=== PATIENT | female | born 1995 | race Caucasian/White ===

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

== ENCOUNTER 2017-04-03 18:15 | Inpatient (IN) | payer OTHER ==
--- NOTE | 2017-04-03 18:32 | EDPHY ---
H & P Stated Complaint: SI--self harm--mild lacerations bilat arms - Personal History LMP (Females 10-55): Unknown Current Tetanus/Diphtheria Vaccine: Unsure Current Tetanus Diphtheria and Acellular Pertussis (TDAP): Unsure - Medical/Surgical History Hx Asthma: No Hx Chronic Respiratory Disease: No Hx Diabetes: No Hx Cardiac Disease: No Hx Renal Disease: No Hx Cirrhosis: No Hx Alcoholism: No Hx HIV/AIDS: No Hx Splenectomy or Spleen Trauma: No Other PMH: SI Hx. - Social History Smoking Status: Never smoked Time Seen by Provider: 04/03/17 18:22 HPI/ROS: CHIEF COMPLAINT: "I cut myself " HISTORY OF PRESENT ILLNESS: 21-year-old female prior history of depression, has been intermittently compliant with her depression medications, in the ER voluntarily via private vehicle with a friend complaining of new onset self- inflicted bilateral volar wrist laceration. States that she was "practicing to kill myself". Describes increasing depression related to school and personal issues. Denies intentional ingestion. He has prior history of hospitalization for depression and suicidality. She otherwise has no complaints of pain or discomfort. REVIEW OF SYSTEMS: A ten point review of systems was performed and is negative with the exception of the items mentioned in the HPI PAST MEDICAL & SURGICAL HISTORY: Depression SOCIAL HISTORY: Student PHYSICAL EXAM (Prior to examination, patient consented to physical exam, hands were washed and my usual and customary physical exam procedures followed) 1) GENERAL: Well-developed, well-nourished, alert and oriented. She is crying, appear sad . 2) HEAD: Normocephalic, atraumatic 3) HEENT: Pupils equal, round, reactive to light bilaterally. Sclera anicteric. 4) NECK: Full range of motion, no meningeal signs. 5) LUNGS: Clear auscultation bilaterally, no wheezes, no rhonchi, no retractions. 6) HEART: Regular rate and rhythm, no murmur, no heave, no gallop. 7) ABDOMEN: No guarding, no rebound, no focal tenderness, 8) MUSCULOSKELETAL: Bilateral volar forearm multiple superficial laceration abrasion none requiring closure. She is neurovascular intact distally bilaterally. 9) BACK: no visual or palpable abnormality. 10) SKIN: No rash, no petechiae. 11) Psychiatric: Patient is oriented X 3, there is no agitation. DIFFERENTIAL DIAGNOSIS: in no particular include but limited to suicidal ideation, homicidal ideation, depression (Adolfo Gunter [place]) Constitutional: Initial Vital Signs Temperature (C) 37.0 C 04/03/17 18:18 Heart Rate 99 04/03/17 18:18 Respiratory Rate 18 04/03/17 18:18 Blood Pressure 151/69 H 04/03/17 18:18 O2 Sat (%) 99 04/03/17 18:18 O2 Delivery Mode Room Air Allergies/Adverse Reactions: No Known Allergies Allergy (Unverified 09/19/16 14:31) Home Medications: Medication Instructions Recorded Buspar (*) 09/19/16 Lexapro 09/19/16 Medical Decision Making ED Course/Re-evaluation: 6:30 p.m.: In consultation with secondary supervising physician Dr. Donato Flood, this patient has been placed on M1 hold as she endorses active suicidal ideation with plan to lacerated her wrists. Care of patient under supervision of secondary supervising physician Dr Flood . (Adolfo Gunter [place]) Other Provider: 0020 care assumed by me from MERLIN Gunter pending mental health evaluation. 0040 patient has been seen by mental health. She will be admitted to [address] Raza fletcher. I have completed the EMTALA. ( Andrew Skelton) - Data Points Laboratory Results: Laboratory Results 04/03/17 18:55 04/03/17 18:55 04/03/17 04/03/17 04/03/17 19:54 18:55 18:55 WBC RBC Hgb Hct MCV MCH MCHC RDW Plt Count MPV Neut % (Auto) Lymph % (Auto) Luce % (Auto) Eos % (Auto) Baso % (Auto) Nucleat RBC Rel Count Absolute Neuts (auto) Absolute Lymphs (auto) Absolute Monos (auto) Absolute Eos (auto) Absolute Basos (auto) Absolute Nucleated RBC Immature Gran % Immature Gran # Sodium 138 mEq/L mEq/L (134-144) Potassium 4.0 mEq/L mEq/L (3.5-5.2) Chloride 105 mEq/L mEq/L (97-110) Carbon Dioxide 20 mEq/l L mEq/l (22-31) Anion Gap 13 mEq/L mEq/L (8-16) BUN 9 mg/dL mg/dL (7-23) Creatinine 0.7 mg/dL mg/dL (0.6-1.0) Estimated GFR > 60 Glucose 88 mg/dL mg/dL (70-100) Calcium 10.1 mg/dL mg/dL (8.5-10.4) Beta HCG, Qual NEGATIVE Salicylates < 1.0 mg/dL L mg/dL (2.0-20.0) Urine Opiates Screen NEGATIVE (NEGATIVE) Acetaminophen < 10 mcg/mL L mcg/mL (10-30) Urine Barbiturates NEGATIVE (NEGATIVE) Ur Phencyclidine Scrn NEGATIVE (NEGATIVE) Ur Amphetamine Screen NEGATIVE (NEGATIVE) U Benzodiazepines Scrn NEGATIVE (NEGATIVE) Urine Cocaine Screen NEGATIVE (NEGATIVE) U Marijuana (THC) Screen NEGATIVE (NEGATIVE) Ethyl Alcohol < 10 mg/dL mg/dL (0-10) 04/03/17 18:55 WBC 7.42 10^3/uL 10^3/uL (3.80-9.50) RBC 4.77 10^6/uL 10^6/uL (4.18-5.33) Hgb 13.4 g/dL g/dL (12.6-16.3) Hct 40.3 % % (38.0-47.0) MCV 84.5 fL fL (81.5-99.8) MCH 28.1 pg pg (27.9-34.1) MCHC 33.3 g/dL g/dL (32.4-36.7) RDW 12.7 % % (11.5-15.2) Plt Count 242 10^3/uL 10^3/uL (150-400) MPV 10.1 fL fL (8.7-11.7) Neut % (Auto) 63.2 % % (39.3-74.2) Lymph % (Auto) 26.8 % % (15.0-45.0) Luce % (Auto) 7.5 % % (4.5-13.0) Eos % (Auto) 1.2 % % (0.6-7.6) Baso % (Auto) 0.9 % % (0.3-1.7) Nucleat RBC Rel Count 0.0 % % (0.0-0.2) Absolute Neuts (auto) 4.68 10^3/uL 10^3/uL (1.70-6.50) Absolute Lymphs (auto) 1.99 10^3/uL 10^3/uL (1.00-3.00) Absolute Monos (auto) 0.56 10^3/uL 10^3/uL (0.30-0.80) Absolute Eos (auto) 0.09 10^3/uL 10^3/uL (0.03-0.40) Absolute Basos (auto) 0.07 10^3/uL 10^3/uL (0.02-0.10) Absolute Nucleated RBC 0.00 10^3/uL 10^3/uL (0-0.01) Immature Gran % 0.4 % % (0.0-1.1) Immature Gran # 0.03 10^3/uL 10^3/uL (0.00-0.10) Sodium Potassium Chloride Carbon Dioxide Anion Gap BUN Creatinine Estimated GFR Glucose Calcium Beta HCG, Qual Salicylates Urine Opiates Screen Acetaminophen Urine Barbiturates Ur Phencyclidine Scrn Ur Amphetamine Screen U Benzodiazepines Scrn Urine Cocaine Screen U Marijuana (THC) Screen Ethyl Alcohol Departure - Departure Disposition: [facility] IP Clinical Impression: Severe major depression, Suicidal ideation Condition: Fair Referrals: NONE *PRIMARY CARE P,. [Primary Care Provider] - As per Instructions
[2017-04-03 19:05] LABS: % IMMATURE GRANULYOCYTES 0.4 % (0.0-1.1); ABSOLUTE IMMATURE GRANULOCYTES 0.03 10^3/uL (0.00-0.10); ADD DIFF? NO; ADD MORPH? NO; ADD SCAN? NO; ATYPICAL LYMPHOCYTE FLAG 20 (0-99); FRAGMENT RBC FLAG 0 (0-99); HEMATOCRIT 40.3 % (38.0-47.0); HEMOGLOBIN 13.4 g/dL (12.6-16.3); LEFT SHIFT FLG 0 (0-99); LIPEMIA HEMOLYSIS FLAG 80 (0-99); MEAN CELL HEMOGLOBIN 28.1 pg (27.9-34.1); MEAN CELL HEMOGLOBIN CONCENTR. 33.3 g/dL (32.4-36.7); MEAN CELL VOLUME 84.5 fL (81.5-99.8); MEAN PLATELET VOLUME 10.1 fL (8.7-11.7); PLATELET CLUMPS FLAG 0 (0-99); PLATELET COUNT 242 10^3/uL (150-400); RED BLOOD CELL COUNT 4.77 10^6/uL (4.18-5.33); RED CELL DISTRIBUTION WIDTH 12.7 % (11.5-15.2)
[2017-04-03 19:20] LABS: ANION GAP 13 mEq/L (8-16); CALCIUM 10.1 mg/dL (8.5-10.4); CARBON DIOXIDE 20 mEq/l (22-31); CHLORIDE 105 mEq/L (97-110); CREATININE 0.7 mg/dL (0.6-1.0); ETHANOL SERUM < 10 mg/dL (0-10); GLOMERULAR FILTRATION RATE > 60; GLUCOSE 88 mg/dL (70-100); SALICYLATE < 1.0 mg/dL (2.0-20.0); SODIUM 138 mEq/L (134-144)
[2017-04-04] MEDS ORDERED: LORazepam 0.5 MG TAB PO PRN (02:20)
[2017-04-04] MEDS ORDERED: ACETAMINOPHEN 325 MG TAB PO PRN (02:20)
[2017-04-04] MEDS ORDERED: MAG HYDROX/AL HYDROX/SIMETH 30 ML UDCUP PO PRN (02:20)
[2017-04-04] MEDS ORDERED: MAGNESIUM HYDROXIDE 30 ML UDCUP PO PRN (02:20)
[2017-04-04] MEDS ORDERED: busPIRone 5 MG TAB PO SCH (15:45)
[2017-04-04] MEDS: ARIPiprazole 2 MG TAB PO SCH (16:13)
[2017-04-04] MEDS: busPIRone 5 MG TAB PO SCH ×2 (16:14→20:49)
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
--- NOTE | 2017-04-04 17:25 | BCON ---
[f rep st] BEHAVIORAL HEALTH CONSULTATION INTERNAL MEDICINE CONSULTATION DATE OF CONSULTATION: 04/04/2017 REFERRING PHYSICIAN: Salazar Stephen MD REASON FOR REFERRAL: Medical clearance for inpatient behavioral health stay. HISTORY OF PRESENT ILLNESS: This patient was brought to the emergency department voluntarily with 2 friends. She had developed suicidal ideation and had inflicted shallow lacerations on her forearms with a razor blade. She was evaluated by the mental health team and admitted for further psychiatric care. She currently is without any acute complaints other than some discomfort at the superficial lacerations. PAST MEDICAL HISTORY: Depression. PAST SURGICAL HISTORY: She has donated bone marrow, and she had an Implanon implant for control, which was removed from her right upper arm. MEDICATIONS: Prior to admission, she was taking escitalopram and buspirone. ALLERGIES: Listed to acetaminophen and hydrocodone. SOCIAL HISTORY: She lives alone. 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 She is a nonsmoker and does not use alcohol. She works at [employer]. FAMILY HISTORY: Significant for alcoholism and bipolar disorder. REVIEW OF SYSTEMS: She has some pain at the sites of the superficial lacerations. Otherwise, she denies pain. She denies cough or dyspnea, fevers, chills, nausea or vomiting, constipation or diarrhea, dysuria or urinary frequency. She reports that she has had a partially volitional weight loss of approximately 30 pounds in recent months. Otherwise, a 10-point review of systems is negative. PHYSICAL EXAM: VITAL SIGNS: Blood pressure is 134/61, heart rate is 90, respiratory rate 16, oxygen saturation 94% on room air, temperature 36.9 degrees centigrade. Her weight is recorded at 77.1 kg for a body mass index of 28.3; however, this is likely erroneous as she appears to be quite obese. GENERAL: This is a well-nourished, well-developed, obese appearing woman, appears her chronologic age, cooperative and in no acute distress. HEENT: Extraocular movements are intact. Pupils are equal, round, and reactive to light. Mucous membranes are moist. Dentition is in good condition. NECK: Supple. HEART: There is a regular rate and rhythm with no murmurs, rubs, or gallops. LUNGS: Clear to auscultation bilaterally. ABDOMEN: Soft, nontender , nondistended with normoactive bowel sounds. EXTREMITIES: There is no cyanosis, clubbing, or edema. SKIN: She has multiple superficial lacerations with minimal eschar and erythema bilaterally on her palmar wrists. NEUROLOGIC: She is alert and oriented x3. There is no focal weakness. Sensation is intact to light touch. LABORATORY STUDIES: Studies were drawn in the emergency department, revealed a CBC which was completely within normal limits. Serum chemistry showed a slightly low carbon dioxide of 20, likely of no clinical significance. Otherwise, renal function and electrolytes were within normal limits. Beta hCG was negative for . Toxicology in the serum was negative for salicylates, acetaminophen or ethyl alcohol, and the urine was negative for any substances of abuse. ASSESSMENT/RECOMMENDATIONS: 1. Mental health issues, pending further evaluation and management per Psychiatry and the mental health team. 2. Superficial lacerations on the wrists. She has not done herself any significant harm. Expect these to heal spontaneously over several days, to a week or 2. 3. Obesity. Advised increased exercise. Consider avoiding medications which might exacerbate weight gain. 4. Weight loss. She was encouraged to continue. Advise observing p.o. intake and weight as she is psychiatrically stabilized. 5. I see no medical contraindications to this patient's continued stay on the inpatient behavioral health unit or to any psychiatric medications or procedures. Thank you very much for including me in the care of this patient. Please do not hesitate to contact me or the hospitalist service should there be need for further medical evaluation. /[id number]/MODL MTDD
[2017-04-04] MEDS: hydrOXYzine HCL 25 MG TAB PO PRN (23:31)
[2017-04-05 06:18] VITALS: RESP 14
[2017-04-05] MEDS: ESCITALOPRAM OXALATE 10 MG TAB PO SCH (08:55)
[2017-04-05] MEDS: busPIRone 5 MG TAB PO SCH ×3 (08:55→21:31)
[2017-04-05] MEDS: ARIPiprazole 2 MG TAB PO SCH (08:55)
[2017-04-05] MEDS: hydrOXYzine HCL 25 MG TAB PO PRN (09:26)
--- NOTE | 2017-04-05 13:11 | SOAPPROG ---
SOAP Progress Note Assessment/Plan: Assessment: Major Depressive Disorder, Recurrent Severe without psychotic features Rule Out Bipolar Disorder type II PTSD symptoms Borderline PD traits Overweight Patient admitted 04/04/17 for suicidal ideation with numerous cuts on both arms. Patient reports continued depressed mood and feeling hopeless but denies SI today. Patient has school, financial, and housing stressors but some supports. Patient appears less distress today with better eye contact. Plan: Check baseline TSH and Lipids Supportive therapy regarding school, financial, and housing stressors Encouraged patient to contact school and family Reviewed coping skills to manage emotions. Reviewed positive thoughts about self, future and healthy behaviors to improve mood Continue Lexapro 20mg Continue Abilify 2mg, started 04/04 Continue Hydroxyzine 25mg PRN anxiety/insomnia Monitor mood stability, impulse control Patient agreeable to continue treatment voluntarily 04/05/17 13:19 Subjective: Patient reports feeling 'more calm.' Reports feeling tired yesterday after receiving afternoon dose of Abilify. Slept well. Reports this AM having anxiety, feeling ashamed and depressed after another patient grabbed her arm and asked her about her cuts and another patient threw a tray. Reports having brief thoughts of superficially cutting lasting for minutes at a time, but denies intent to do this and reports using coping skills to distract herself from these symptoms; denies wanting to or kill herself. Reports she hasn't attended school for 4 weeks. Reports deciding today that she should withdraw from school before Apr 12 deadline in order for tuition funds to be returned to her college fund. Reports she hasn't spoken to her mother and grandmother (who control college fund) about this or about the cost of housing if not in school. Reports she hopes to possibly rent a room with a friend if she cannot stay in apartment and has been talking to several friends. 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 Reports chronic low energy. Denies nausea, diarrhea, rigidity, tremors, or restlessness. Reports reduced anxiety with PRN hydroxyzine. Reports student health check TSH, glucose, lipids one year ago prior to starting Lexapro. Objective: Vital Signs Temp Pulse Resp BP Pulse Ox 36.4 C 64 14 131/71 H 98 04/05/17 06:00 04/05/17 06:00 04/05/17 06:00 04/05/17 06:00 04/05/17 06:00 Alert WF, overweight, glasses, cooperative, pleasant. Appears briefly anxious and dysphoric but has better eye contact and is less dysphoric than previous. Reports mood 'OK, better, still down'. Thoughts organized with good detail. Denies SI or HI but had brief thoughts to cut self today without intent and was able to using coping skills to distract herself. Denies AH or paranoia. Good memory, good insight, appropriate judgment - Time Spent With Patient Time Spent With Patient: 30 - Pending Discharge Pending Discharge Within 24 Hours: No Pending Discharge Within 48 Hours: No Physical Exam - Physical Exam General Appearance: alert Extremities: normal range of motion Neuro/Psych: no motor/sensory deficits, oriented x 3 ICD10 Worksheet Patient Problems: Problems Problem Status Onset Post-traumatic stress disorder, unspecified Acute Severe major depression Acute Suicidal ideation Acute
[2017-04-05] MEDS ORDERED: FLU VACC QS 2017-18 (3YR+)/PF 0.5 ML SYR (FLUARIX QUAD) IM ONE (13:51)
[2017-04-06 06:46] VITALS: PULSE 68
[2017-04-06] MEDS ORDERED: LORazepam 1 MG TAB PO ONE (08:00)
[2017-04-06] MEDS: busPIRone 5 MG TAB PO SCH ×3 (10:50→21:19)
[2017-04-06] MEDS: ARIPiprazole 2 MG TAB PO SCH (10:50)
[2017-04-06] MEDS: ESCITALOPRAM OXALATE 10 MG TAB PO SCH (10:51)
--- NOTE | 2017-04-06 11:19 | SOAPPROG ---
SOAP Progress Note Assessment/Plan: Assessment: Major Depressive Disorder, Recurrent Severe without psychotic features Rule Out Bipolar Disorder type II PTSD symptoms Borderline PD traits Overweight Specific Phobia - needle/injection/blood Patient admitted 04/04/17 for suicidal ideation with numerous cuts on both arms. Patient has school, financial, and housing stressors but some supports. Patient appears improved with more euthymic affect, reports numerous coping skills to use to manage thoughts of self-harm. Patient had severe nausea and weakness and low BP concurrent with blood draw but improved with one time dose of Ativan 1mg. Plan: TSH and Lipids pending Supportive therapy regarding school, financial, and housing stressors. Patient reports psychiatrist appointment 04/08/17, casework specialistclient support manager 04/11 Reviewed coping skills to manage emotions. Reviewed positive thoughts about self, future and healthy behaviors to improve mood Continue Lexapro 20mg Continue Abilify 2mg, started 04/04 Continue Hydroxyzine 25mg PRN anxiety/insomnia Monitor mood stability, impulse control, risk of self harm Discharge tomorrow if stable 04/06/17 11:17 Subjective: "Better, tired" Patient reports some difficulty falling asleep due to fear of AM blood draw. Had nausea, brief vomitting, and weakness concurrent with blood draw. Feels improved but tired from Ativan 1mg. Reports overall mood is improved. Reports feeling less hopeless and more confidant after coming up with a plan to see her psychiatrist and casework specialist after discharge. 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 Reports coping skills that she will use including: playing with cat, activities with friends, going for a walk, reading, writing, coloring. Reports tolerating Abilify without stiffness or tremors or restlessness. Objective: Vital Signs Temp Pulse Resp BP Pulse Ox 36.4 C 68 14 105/54 L 96 04/05/17 06:00 04/06/17 06:00 04/06/17 06:00 04/06/17 06:00 04/06/17 06:00 Alert WF, overweight, glasses, cooperative and pleasant Numerous superficial cuts on both arms, no drainage or swelling No weakness or tremors or restlessness Speech RRR, soft voice Mood 'better, tired' Affect briefly reactive Thoughts organized Denies SI or HI Denies AH or paranoia Good memory Fair insight, appropriate judgment STaff report patient slept 9 hours last nights. Nausea, brief vomit and weakness concurrent with blood draw, improved with one time Ativan 1mg. - Time Spent With Patient Time Spent With Patient: 30 - Pending Discharge Pending Discharge Within 24 Hours: No Pending Discharge Within 48 Hours: Yes Pending Discharge Date: 04/07/17 Pending Discharge Time: 14:00 Physical Exam - Physical Exam General Appearance: alert, no apparent distress, obese Extremities: normal range of motion Neuro/Psych: no motor/sensory deficits, alert, oriented x 3 ICD10 Worksheet Patient Problems: Problems Problem Status Onset Post-traumatic stress disorder, unspecified Acute Severe major depression Acute Suicidal ideation Acute
[2017-04-06 13:51] LABS: CHOLESTEROL 179 mg/dL (64-170); CHOLESTEROL/HDL RATIO 6.39 RATIO (1.00-4.44); HIGH DENSITY LIPOPROTEIN 28 mg/dL (35-70); LDL/HDL RATIO 4.25 RATIO (1.00-3.22); LOW DENSITY LIPOPROTEIN 119 mg/dL (50-125); NON-HIGH DENSITY LIPOPROTEIN 151 mg/dL (90-129); TRIGLYCERIDE 162 mg/dL (35-135); VERY LOW DENSITY LIPOPROTEINS 32 mg/dL (8-25)
[2017-04-07 06:54] VITALS: BP 111/58; TEMP 97.6; O2SAT 98
[2017-04-07] MEDS: ARIPiprazole 2 MG TAB PO SCH (08:27)
[2017-04-07] MEDS: ESCITALOPRAM OXALATE 10 MG TAB PO SCH (08:27)
[2017-04-07] MEDS: busPIRone 5 MG TAB PO SCH (08:27)
--- NOTE | 2017-04-07 18:57 | BDS ---
[f rep st] BEHAVIORAL HEALTH DISCHARGE SUMMARY DATE OF ADMISSION: 04/04/17 DATE OF DISCHARGE: 04/07/17 REASON FOR ADMISSION: This is a 21-year-old single white female who lives alone in an apartment. She is a [employer] sophomore. 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 She was taken to the emergency room by a friend after she superficially cut on both of her arms in numerous places. She was medically cleared in the emergency room and admitted to the inpatient unit on M1 hold. ADMITTING DIAGNOSES: Major depressive disorder, recurrent, severe, with mixed features, rule out bipolar disorder type 2, also posttraumatic stress disorder, suicidal ideation, borderline and avoidant personality disorder traits, school and housing and financial stressors. ADMISSION PHYSICAL EXAM: When the patient was admitted, she was an overweight white female with numerous superficial cuts on both forearms. She was ambulatory without tremors or weakness. She was wearing glasses. She reported her mood as depressed with recurrent thoughts of suicide and cutting her wrists. She denied auditory hallucinations, paranoia, or violent ideation. She had good memory, fair insight and impaired judgement. ADMISSION LABS: CBC was within normal limits. Her basic metabolic panel was normal with a creatinine of 0.7, sodium 138, glucose 88, calcium 10.1. Urinalysis was negative. Serum beta HCG was negative. The patient later had a TSH which was 3.3 which was normal. Her cholesterol panel was mildly elevated with an LDL of 119, HDL 28, triglycerides 162. HOSPITAL COURSE: The patient was admitted to the inpatient unit on an M1 hold for suicidal ideation and superficial cutting on her arms. The patient reported chronic depression and anxiety since a traumatic childhood. During her childhood, her mother had a severe mood disorder and opiate addiction and would frequently threaten suicide. The patient reports she has nightmares about her mother dying and frequently wakes up at night fearing that someone has . She endorsed hypervigilance. She endorsed numerous symptoms of major depressive disorder including low energy, low activity, low mood, hopelessness, thoughts of and suicide. She reported past episodes of elevated mood, elevated energy, increased talkativeness, lasting a few days at a time without any reckless behavior or psychosocial dysfunction. She endorsed borderline personality traits but did not appear to meet full criteria for that disorder but reports that she had been superficially cutting on herself only when feeling depressed since early adolescence. The patient reports that she had 1 inpatient psychiatric hospitalization in [place] for suicidal ideation and depression. She did report being on Lexapro from the student health services at [facility]. She reports some benefit from this medication. She was taking 15 mg of BuSpar as well. She reported some benefit in the morning for anxiety symptoms. She reported sleep disturbance. The patient was counseled about the risks and benefits of either switching her Lexapro to Prozac or adding on Abilify, Seroquel or Lamictal to her Lexapro. The patient preferred to try a low dose of Abilify. She reported that she tolerated this medication. Did not develop stiffness, tremors or restlessness. During the hospitalization, the patient reported improved mood, feeling more calm, less emotionally distressed. The patient had improved affect on the unit. She participated in individual and group therapy. She was able to identify numerous supports here in [place] including friends and coworkers. She was also able to identify numerous coping skills to manage her episodic negative emotions. Prior to discharge, she denied having further suicidal thoughts. On the unit, she was calm and cooperative and pleasant. Of note, she did appear to have a phobia of needles and blood. When she had her blood draw for the TSH and lipid panel, she became nauseous, vomited and felt extremely weak and received a one time dose of Ativan. The patient tolerated hydroxyzine 25 mg p.r.n. for anxiety and sleep. She continued on her Lexapro and tolerated Abilify 2 mg p.o. q.a.m. for depression. Prior to discharge, the patient was able to make a decision about withdrawing from college and had a plan to follow up with the student health service at and then meet with the bhavesh of student affairs next week to withdraw from college. The patient has an apartment that she can return to but this is being paid for out of a college fund controlled by her maternal grandmother in [place]. The patient had not reached her maternal grandmother to discuss financing her apartment beyond the end of April. 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 Patient had several visits from several friends during the course of hospitalization. The patient did call her step father who lives in [place]. The patient did not contact her mother in [place] and would not allow us to contact her mother either. CONDITION AT DISCHARGE: She is an alert white female in no acute distress, who appears euthymic. She has good eye contact, reactive and smiling affect. She denies thoughts to hurt herself or others. She describes her mood as "pretty good." Her thoughts are organized. She denies auditory hallucinations or paranoia or any violent thoughts or any suicidal thoughts. She has good insight , good memory, and appropriate judgement. DISCHARGE DIAGNOSES: Major depressive disorder, recurrent, severe, with mixed features. Also history of posttraumatic stress disorder, borderline personality disorder traits, overweight, elevated triglycerides and then specific phobia, needle injection, blood type. DISCHARGE MEDICATIONS: Lexapro 20 mg p.o. q.a.m. Abilify 2 mg p.o. q.a.m. Hydroxyzine 25 mg p.o. q.6h. p.r.n. for anxiety or insomnia. Of note, the patient was warned about the risks of tardive dyskinesia, neuroleptic malignant syndrome, diabetes and hyperlipidemia with Abilify. She was also warned about the risks of sedation and defects with psychiatric medications and the risk of driving impairment. The patient was also counseled to work with primary care to have her glucose and lipid panel rechecked in 1 month if continuing Abilify. DISPOSITION: The patient will be discharging with a friend back to her apartment. She has a follow-up appointment at [place]. LEGAL STATUS: The patient was on an M1 hold when she was admitted. She converted to voluntary status during the hospitalization. /[id number]/MODL MTDD
== END 2017-04-07 14:17 | disposition home or self-care (01) | DRG 885 ==
LOC: BBEH 04-04 02:07
PROVIDERS: ADMIT Psychiatry & Neurology Psychiatry
DX: F33.2 Major depressive disorder, recurrent severe without psychotic features (principal); F43.10 Post-traumatic stress disorder, unspecified; F60.3 Borderline personality disorder; F60.6 Avoidant personality disorder; E66.9 Obesity, unspecified
CPT/HCPCS: 80305; G0008; G0480

== ENCOUNTER 2017-10-27 23:09 | Emergency (ER) | payer OTHER ==
--- NOTE | 2017-10-27 23:22 | EDPHY ---
H & P Stated Complaint: intentional overdose Source: Patient, Police, EMS - Medical/Surgical History Hx Asthma: No Hx Chronic Respiratory Disease: No Hx Diabetes: No Hx Cardiac Disease: No Hx Renal Disease: No Hx Cirrhosis: No Hx Alcoholism: No Hx HIV/AIDS: No Hx Splenectomy or Spleen Trauma: No Other PMH: SI Hx. - Social History Smoking Status: Never smoked Time Seen by Provider: 10/27/17 23:12 HPI/ROS: HPI The patient presents brought in by ambulance after overdose on her own pills which happened 45 min prior to presentation. The patient was feeling a lot of stress as she is likely losing her house [place]. She was supposed to have a roommate move in with her, however the roommate changed her plans and now the patient is unable to afford her apartment and her lease is ending. Because she was feeling very anxious she began to take multiple pills including hydroxyzine 25, Abilify 2, naproxen 500, tizanidine 4, benadryl 50. She believes she took in between 20 in 100 pills.. She is unsure how many pills she had an each of these bottles. She now reports that she has a stomach ache and is feeling somewhat dizzy. She has no prior history of overdose. She does have a history of self cutting and was admitted to [address] [place] [address] in April. REVIEW OF SYSTEMS Constitutional: No fever, no chills. Eyes: No discharge. ENT: No sore throat. Cardiovascular: No chest pain, no palpitations. Respiratory: No cough, no shortness of breath. Gastrointestinal: No abdominal pain, no vomiting. Genitourinary: No hematuria. Musculoskeletal: No back pain. Skin: No rashes. Neurological: No headache. PMHx: History of major depressive disorder on medications, history of PTSD Soc Hx: College student, from [place] originally. PHYSICAL General Appearance: Alert, no distress Eyes: Pupils equal and round no pallor or injection ENT, Mouth: Mucous membranes moist Respiratory: There are no retractions, lungs are clear to auscultation Cardiovascular: Regular rate and rhythm Gastrointestinal: Abdomen is soft and non-tender, no masses, bowel sounds normal Neurological: A&O, moves all extremities Skin: Warm and dry, no rashes Musculoskeletal: Neck is supple non tender Extremities: symmetrical, full range of motion Psychiatric: Patient is oriented X 3, there is no agitation (Riguzzi,Loren) Constitutional: Initial Vital Signs Temperature (C) 36.7 C 10/27/17 23:10 Heart Rate 61 10/27/17 23:10 Respiratory Rate 17 10/27/17 23:10 Blood Pressure 116/62 10/27/17 23:10 O2 Sat (%) 97 10/27/17 23:10 O2 Delivery Mode Room Air O2 (L/minute) 3 Allergies/Adverse Reactions: acetaminophen [From Vicodin] Allergy (Verified 10/27/17 23:22) hydrocodone [From Vicodin] Allergy (Verified 10/27/17 23:22) Home Medications: Medication Instructions Recorded busPIRone [Buspar (*)] 15 mg PO DAILY 04/04/17 ARIPiprazole [Abilify 2 mg (*)] 2 mg PO DAILY #30 tab 04/07/17 Escitalopram Oxalate [Lexapro 10 20 mg PO DAILY tab 04/07/17 MG] busPIRone [Buspar (*)] 5 mg PO TID #90 tab 04/07/17 hydrOXYzine HCL [hydrOXYzine HCL 25 mg PO Q6HRS PRN #30 tab 04/07/17 (RX)] Medical Decision Making - Diagnostics EKG Interpretation: EKG: Complete interpretation has been separately recorded in the [facility] archive. Summary impression: Normal sinus rhythm (Loren Merino) ED Course/Re-evaluation: This patient has been turned over to me at change of shift. He has been accepted at [facility] and [place]. I filled out all the appropriate transfer paperwork. (Jarred Monroy) Differential Diagnosis: This is a 22-year-old female with history of major depressive disorder who reports increased social stressors, possibly losing her housing, who because she was feeling worried about this took an overdose of her medications. She says that she was trying to hurt herself but not necessarily kill herself. She is brought in by paramedics and police on M1 hold. On arrival, she has normal vital signs though is sedate. Physical exam is otherwise unrevealing. In the emergency department, IV line was established and the patient was given normal saline. She was given supplemental oxygen because of her sedation. I discussed the case with the [facility] Control [facility]. They recommend 68 hr of observation until medically clear until her mental status improves. Benzodiazepines can be used in the case of a seizure. She should be given bicarb if her QRS widen. If she becomes very sedate, Narcan can be given. case # [id number]. Differential diagnosis includes suicidal ideation, drug overdose, stress response. In the emergency department, the patient slept for most of the evening. Her vital signs remained normal. She was able to provide a urine sample and walked to the bathroom. Labs were checked and were unremarkable. She did not require any additional medications. At 7:30 a.m., the case is signed out to the oncoming provider Dr. Khurram leger. The patient is awaiting mental health evaluation for her M1 hold. ( Loren Merino) Other Provider: Assumed care of this patient at [address] Loren Marie. We are awaiting placement. Informed by nursing staff at noon that the patient will be admitted to a CSU. Patient's care was assumed by Dr. Jarred Monroy at 3:30 p.m. (Karin Paulson) - Data Points Laboratory Results: Laboratory Results 10/27/17 23:10 10/27/17 23:10 10/28/17 06:50 Urine Opiates Screen NEGATIVE (NEGATIVE) Urine Barbiturates NEGATIVE (NEGATIVE) Ur Phencyclidine Scrn NEGATIVE (NEGATIVE) Ur Amphetamine Screen NEGATIVE (NEGATIVE) U Benzodiazepines Scrn NEGATIVE (NEGATIVE) Urine Cocaine Screen NEGATIVE (NEGATIVE) U Marijuana (THC) Screen NEGATIVE (NEGATIVE) Medications Given: Discontinued Medications Sodium Chloride (Ns) 1,000 mls @ 0 mls/hr IV ONCE ONE PRN Reason: Wide Open Stop: 10/28/17 05:36 Last Admin: 10/28/17 05:42 Dose: 1,000 mls Departure - Departure Disposition: Other Psych, Not Mobile Clinical Impression: Attempted suicide Drug overdose, intentional Qualifiers: Encounter type: initial encounter Qualified Code(s): T50.902A - Poisoning by unspecified drugs, medicaments and biological substances, intentional self-harm , initial encounter Condition: Good Instructions: Adult Overdose (ED) Referrals: Patient,NotPresent [Primary Care Provider] - As per Instructions
--- NOTE | 2017-10-27 23:29 | CPEKG ---
Heart Rate: 62 RR Interval: 968 P-R Interval: 176 QRSD Interval: 82 QT Interval: 448 QTC Interval: 455 P Lutz: 21 QRS Lutz: 20 T Wave Lutz: 6 EKG Severity - NORMAL ECG - EKG Impression: SINUS RHYTHM Electronically Signed By: Karin Paulson 28-Oct-2017 14:06:26
[2017-10-27 23:35] LABS: PLATELET COUNT 282 10^3/uL (150-400)
[2017-10-28] MEDS ORDERED: NS 1,000 ML IV ONE (05:35)
[2017-10-28 18:54] VITALS: BP 130/69
== END 2017-10-28 18:52 ==
LOC: EDUNIT# → EEVIPCON 23:09
DX: T43.592A Poisoning by other antipsychotics and neuroleptics, intentional self-harm, initial encounter (principal); T39.312A Poisoning by propionic acid derivatives, intentional self-harm, initial encounter; T45.0X2A Poisoning by antiallergic and antiemetic drugs, intentional self-harm, initial encounter; T42.8X2A Poisoning by antiparkinsonism drugs and other central muscle-tone depressants, intentional self-harm, initial encounter
CPT/HCPCS: 80305; G0480